=== PATIENT | female | born 1980 | race Caucasian/White ===

== ENCOUNTER 2017-12-26 16:22 | Outpatient (REF) | payer MEDICAID, SELFPAY ==
--- NOTE | 2017-12-26 13:15 | PAPFT_PTH ---
PATIENT: FARIBA MAYORGA LOC: [facility] U#:[id number] AGE/SX: 37/F ROOM: RE12/26/[address]: Chhaya Lazcano : 1980 BED: DIS: 12/26/2017 SPEC #: [id number] RECD: 12/27/17 12:53 STATUS: EMERY REQ #: [id number] BUNNY: 12/26/17 13:[address]: Chhaya Lazcano DEPT: [facility] Cytology RECD BY: Sheela Cox Tissues: 1 - CX/ENDOCX FOR PAP SMEARS Procedures: PAP THIN PREP/UVM Screening HPV DNA PROBE Comments: [id number] (CHLAMYDIA/GC)
[2017-12-28 13:49] LABS: Chlamydia Result Negative; GC Result Negative; Specimen Description SEE COMMENTS
== END 2017-12-26 16:42 ==
LOC: NCHCN 16:22
PROVIDERS: PCP Family Medicine; Visit Provider Family Medicine
DX: Z12.4 Encounter for screening for malignant neoplasm of cervix (principal); Z11.51 Encounter for screening for human papillomavirus (HPV); Z11.3 Encounter for screening for infections with a predominantly sexual mode of transmission
CPT/HCPCS: 87491; 87591; 88142; 87624

== ENCOUNTER 2019-03-03 10:25 | Emergency (ER) | payer MEDICAID, SELFPAY ==
[2019-03-03 10:31] VITALS: BP 126/71; PULSE 71; RESP 18; TEMP 36.6; O2SAT 98
--- NOTE | 2019-03-03 10:31 | ED.GENADUL_ITS ---
Discharge Plan Disposition Patient Disposition: HOME Condition: Good Discharge Details Chief Complaint: Urinary Clinical Impression: UTI (urinary tract infection) Primary Care Provider: Chhaya Lazcano ED Provider: Silvana Rosas Home Meds and New Rx's Prescriptions: New cephalexin [Keflex] 500 mg capsule 500 mg PO BID Qty: 10 RF: 0 phenazopyridine [Pyridium] 100 mg tablet 100 mg PO TID PRN (Reason: pain) Qty: 6 RF: 0 Discharge Instructions Instructions: Urinary Tract Infection in Women (ED) Additional Instructions: Encourage hydration. Please take the Keflex as prescribed for infection. Please take the Pyridium as prescribed to help with symptom medic management. If you develop fever/chills, increased back pain or the new/worsening symptoms please seek care urgently once again. Otherwise, please follow-up with primary care at the end of the week if not improved. Referrals: Chhaya Lazcano MD [Primary Care Provider] - Medical Decision Making Patient is a 38-year-old female presenting today with chief complaint of UTI. She reports that 2 days ago she developed burning with urination, frequency and urgency. States she had urinary tract infections in the past and this feels similar. Denies fevers or chills. No flank pain. On exam, she appears nontoxic. Vital signs within normal limits. No CVA tenderness on exam, abdomen is benign. She reports she is just finishing up her menses so is unclear if she has had blood in the urine. Plan for urinalysis. Urinalysis concerning for blood which may be linked to the patient's menses as well as small amount of leuk trase. Patient is requesting discharge prior to completion of the micro. Given the patient's history, symptoms and leukocyte esterase in the urine, I am concerned for infection we will treat her as such. She will be treated with Keflex and Pyridium. We will contact her if there is any unusual findings in the urinalysis. Advise follow-up with primary care in the week if not improving. She was given return precautions to help her questions and concerns were addressed and she is in agreement this plan. HPI General Mode of arrival: ambulatory . Date/Time Provider Initiated Documentation: 03/03/19 10:31 . Limitations to Documentation: no limitations . Information obtained by: patient and RN notes reviewed . History of Present Illness 38 year old F presents to the emergency department with the chief complaint of Concern for UTI with dysurea, increased frequency and urgency, described as moderate and similar to prior episodes, Quality is described as burning (with urination), and is localized to the pelvis. Patient reports no radiation. Patient started experiencing this day(s) (2) and it has been constant. No relieving factors improve symptom(s), No exacerbating factors reported . Patient notes no other symptoms.; denies diaphoresis, fever/chills, loss of appetite, nausea/vomiting, rash and weakness. Patient did receive the following treatments prior to arrival, none Related Data Home Medications Medication Instructions Recorded Confirmed cephalexin [Keflex] 500 mg PO BID #10 cap 03/03/19 phenazopyridine [Pyridium] 100 mg PO TID PRN #6 tab 03/03/19 Previous Rx's Medication Instructions Recorded cephalexin [Keflex] 500 mg PO BID #10 cap 03/03/19 phenazopyridine [Pyridium] 100 mg PO TID PRN #6 tab 03/03/19 Allergies Allergy/AdvReac Type Severity Reaction Status Date / Time No Known Allergies Allergy Unverified 03/03/19 10:35 Review of Systems Constitutional Constitutional: Reports as per HPI, Denies chills, Denies fever(s) and Denies poor appetite Cardiovascular Cardiovascular: Denies chest pain Respiratory Respiratory: Denies cough Gastrointestinal Gastrointestinal: Denies abdominal pain, Denies change in bowel habits, Denies nausea and Denies vomiting Genitourinary Genitourinary: Reports as per HPI Musculoskeletal Musculoskeletal: Reports as per HPI and Denies back pain Integumentary/Breasts Skin/Breast: Reports as per HPI and Denies rash [facility] Social History Smoking/Tobacco Use Status: Current every day Tobacco Type: cigarettes Alcohol Intake: former Drug use: Never Substance use type: does not use Do you feel safe at home: Yes Do you feel safe in your relationship?: Yes Exam Const General: cooperative, healthy appearing, comfortable, no acute distress, well developed and well groomed Nutritional Appearance: average body habitus and well nourished Orientation: alert and awake Resp Effort & Inspection: normal respiratory effort and no respiratory distress Auscultation: clear to auscultation bilaterally, no rales, no rhonchi and no wheezes Cardio Rate: regular rate Rhythm: regular rhythm Heart Sounds: S1 normal and S2 normal GI Inspection: normal to inspection Palpation: soft, no hepatosplenomegaly, not firm, no guarding, not rigid and nontender Back/Spine/Pelvis Back: no CVA tenderness Skin General skin exam: no rashes or lesions noted Trauma: no lacerations or abrasions Neuro General: alert and awake Cognition: normal cognition Speech: speech normal Gait: normal gait Psych Appearance: grossly normal and well kempt Mental Status: mental status grossly normal Speech and Movement: speech and movement normal
[2019-03-03 10:51] LABS: Bilirubin Negative (Negative); Blood Trace-lysed (Negative); Clarity Clear (Clear); Glucose Negative (Negative); Ketones Negative (Negative); Leukocyte Esterase Small (Negative); Nitrite Negative (Negative); Urobilinogen 0.2 EU/dL (Up TO 0.2)
[2019-03-03 11:06] LABS: Bacteria Few HPF (Negative); C & S Indicated? Yes; Casts Negative LPF (Negative); Crystals Negative HPF (Negative); Epithelial Cells Few HPF (Negative); Mucus Negative (Negative); RBC Negative HPF (0-2)
[2019-03-03 11:09] VITALS: BP 126/71; PULSE 71; RESP 18; TEMP 36.6; O2SAT 98
== END 2019-03-03 11:09 | disposition home or self-care (01) ==
PROVIDERS: Emergency Provider Physician Assistant; PCP Family Medicine
DX: N39.0 Urinary tract infection, site not specified (principal)
CPT/HCPCS: 81025; 99283; 81003; 81015; 87086